=== PATIENT | female | born 1955 | race Caucasian/White ===

== ENCOUNTER 2020-02-28 14:11 | Outpatient (CLI) | payer OTHER, SELFPAY ==
--- NOTE | ~2020-02-28 | MM_ITS ---
EXAMINATION: MM screening jaqui BI w kaitlin HISTORY: Screening mammogram TECHNIQUE: Craniocaudal and mediolateral oblique 3-D tomosynthesis images were obtained and synthetic 2-D images were generated. CAD analysis was submitted and interpreted. COMPARISON: No prior mammogram is available for comparison at this institution. BREAST PARENCHYMAL COMPOSITION: The breasts are almost entirely fatty. FINDINGS: There is no evidence of suspicious mass, calcification, or architectural distortion to sugg est malignancy in either breast. There has been no suspicious interval change. IMPRESSION: 1. No mammographic evidence of malignancy. 2. Recommend routine screening mammography in one year. BI-RADS Category 1: Negative Reviewed, dictated and finalized at location A.
== END 2020-02-28 14:12 | disposition home or self-care (01) ==
DX: Z12.31 Encounter for screening mammogram for malignant neoplasm of breast (principal)
CPT/HCPCS: 77063; 77067

== ENCOUNTER 2024-07-22 15:35 | Emergency (ER) | payer OTHER, SELFPAY ==
--- NOTE | ~2024-07-22 | CT_ITS ---
EXAMINATION: CT brain wo con DATE: 07/22/2024 18:13 INDICATION: Headache. TECHNIQUE: Computed tomography (CT) of the head was performed without intravenous contrast. The mA wa s adjusted according to patient size. Iterative reconstruction technique was employed. The dose-lengt h product was 983.67 mGy-cm. COMPARISON: Head CT 05/13/2011 FINDINGS: Motion artifact is noted. There are old infarcts in the right frontal and parietal lobes. T here are scattered areas of low attenuation in the cerebral white matter. There is no intracranial he morrhage, acute infarction, or abnormal intracranial mass lesion. The ventricles are normal in size. The paranasal sinuses are clear. The orbits are normal. The mastoid air cells are normal. There is ce rumen in the external auditory canals. IMPRESSION: 1. 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 2. Moderate nonspecific cerebral white matter disease, which likely represents chronic small vessel i schemic disease. Reviewed, dictated and finalized at location A. COLLECTOR IMPRESSION: 1. 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 2. Moderate nonspecific cerebral white matter disease, which likely represents chronic small vessel ischemic disease.
--- NOTE | ~2024-07-22 | US_ITS ---
Duplex Sonography of the left extremity: Indication: DVT Findings: Sagittal and transverse B-mode images as well as color-flow imaging were performed on the l eft femoral and popliteal veins. B-mode examination was done without and with compression in the tra nsverse plane. There is good visualization of the common femoral, proximal profunda femoral, superfi cial femoral, greater saphenous, and popliteal veins. Normal flow was seen on color-flow imaging. No rmal compressibility was demonstrated. Impression: No evidence of deep vein thrombosis involving the left femoral, greater saphenous, superficial femora l, or popliteal veins. Reviewed, dictated and finalized at location M. CAP Impression: No evidence of deep vein thrombosis involving the left femoral, greater sapheno us, superficial femoral, or popliteal veins.
[2024-07-22 15:40] VITALS: BP 148/82; PULSE 78; RESP 17; TEMP 36.6; O2SAT 96
--- NOTE | 2024-07-22 17:12 | ED_ITS ---
HPI - General Adult General Chief complaint: Unspecified <ARTIS Villarreal Last Filed: 07/22/24 17:23> Stated complaint: body spasm <ARTIS Villarreal Last Filed: 07/22/24 17:23> Time Seen by Provider: 07/22/24 17:15 <ARTIS Villarreal Last Filed: 07/22/24 17:23> Focused HPI: Patient is a 69 y/o female who presents to the ED via EMS with report of tremor. Patient is a resident of [facility]. Per EMS report, patient has been c/o tremor for the past few hours. Patient states she has hx of tremor and there is no difference in her tremor today. States it usually will go away however. Per records, hx of tardive dyskinesia. Patient reports hx of seizures, on several medicines, on lacosamide, keppra, Aptiom, nayzilam per med rec. GENERAL: Chronically ill-appearing, well-nourished, and in no acute distress. HEAD: Normocephalic, atraumatic. ENT: Edentulous. CHEST: Clear to auscultation. ?No respiratory distress. HEART: Regular rate and rhythm.? NEURO: ?Alert and oriented x3. Intermittent yelling out. Pill rolling tremor of mouth. Tremor of upper extremities bilaterally and head/neck. Intermittent spasms of arms. No focal deficits. Able to move all extremities. Slight decrease in tremor with purposeful movement. Patient screened in triage and initial orders placed.? ?Additional care and disposition to be based upon?diagnostic testing and treatment. <ARTIS Villarreal Last Filed: 07/22/24 17:23> Source: patient, EMS and old records reviewed <ARTIS Villarreal Last Filed: 07/22/24 17:23> Mode of arrival: EMS <ARTIS Villarreal Last Filed: 07/22/24 17:23> Limitations: no limitations <ARTIS Villarreal Last Filed: 07/22/24 17:23> History of Present Illness HPI narrative: Agree with the above triage note. At the time of my evaluation the patient states she has improved shaking. She states earlier she was ?shaking all over?. She does have a history of seizures with states she normally loses consciousness for the seizures and this does not feel like a seizure. She states she has been compliant with her medications. Additionally she is reporting pain and redness to her left lower extremity. States 3 weeks ago she had an ultrasound of her LLE to r/o DVT but was never told the results. She denies chest pain or shortness of breath, cough or congestion, abdominal pain, N/V/D, dysuria or hematuria, fever. <ARTIS Mcginnis Last Filed: 07/23/24 02:55> Related Data Allergies/adverse reactions: Allergies Allergy/AdvReac Type Severity Reaction Status Date / Time No Known Allergies Allergy Verified 07/22/24 15:36 <ARTIS Villarreal Last Filed: 07/22/24 17:23> Review of Systems Review of Systems: All systems reviewed & are unremarkable except as noted in HPI and below <ARTIS Mcginnis Last Filed: 07/23/24 02:55> Exam Narrative: GENERAL: Well-appearing, well-nourished, and in no acute distress. HEAD: Normocephalic, atraumatic. EYES: PERRLA and EOMI. ENT: Nares clear, no rhinorrhea or epistaxis. Mucous membranes moist. NECK: Supple. CHEST: Clear to auscultation. No respiratory distress. HEART: Regular rate and rhythm. No murmur heard. Normal peripheral pulses. ABDOMEN: Soft, nontender, nondistended, normal active bowel sounds. EXTREMITIES: Normal range of motion. No edema. SKIN: Left lower extremity with several superficial healing wounds in surrounding erythema and warmth. No purulence, crepitus, induration or fluctuation. Left lower extremity mildly more edematous when compared to the right. Cap refill less than 2. Sensation intact. DP pulse 2 +. NEURO: No focal deficits. Alert and oriented x3. Cranial nerves 2-12 intact. Strength 5/5 BUE and BLE. Sensation intact throughout. No tremors or fasciculations <ARTIS Mcginnis Last Filed: 07/23/24 02:55> Course CRACKLING PRESS OPERATOR/PA Physician Supervision For this patient encounter, I reviewed the CRACKLING PRESS OPERATOR or PA documentation, treatment plan, and medical decision making and had [id number] time with this patient. I performed all aspects of the MDM as documented. <Evelyn Horvath MD - Last Filed: 07/23/24 06:34> Vital Signs Vital signs: Vital Signs Temperature 97.8 F 07/22/24 15:40 Pulse Rate 78 07/22/24 15:40 Respiratory Rate 17 07/22/24 15:40 Blood Pressure 148/82 H 07/22/24 15:40 Pulse Oximetry 96 07/22/24 15:40 Oxygen Delivery Room Air 07/22/24 15:40 Temperature 97.8 F 07/22/24 15:40 Pulse Rate 60 07/23/24 06:11 Respiratory Rate 19 07/23/24 06:11 Blood Pressure 110/58 L 07/23/24 06:11 Pulse Oximetry 94 07/23/24 06:11 Oxygen Delivery Room Air 07/22/24 15:40 <Jacklyn Trejo PA-C - Last Filed: 07/22/24 17:23> Vital Signs Temperature 97.8 F 07/22/24 15:40 Pulse Rate 78 07/22/24 15:40 Respiratory Rate 17 07/22/24 15:40 Blood Pressure 148/82 H 07/22/24 15:40 Pulse Oximetry 96 07/22/24 15:40 Oxygen Delivery Room Air 07/22/24 15:40 Temperature 97.8 F 07/22/24 15:40 Pulse Rate 60 07/23/24 06:11 Respiratory Rate 19 07/23/24 06:11 Blood Pressure 110/58 L 07/23/24 06:11 Pulse Oximetry 94 07/23/24 06:11 Oxygen Delivery Room Air 07/22/24 15:40 <Melina Leiva PA-C - Last Filed: 07/23/24 02:55> Vital Signs Temperature 97.8 F 07/22/24 15:40 Pulse Rate 78 07/22/24 15:40 Respiratory Rate 17 07/22/24 15:40 Blood Pressure 148/82 H 07/22/24 15:40 Pulse Oximetry 96 07/22/24 15:40 Oxygen Delivery Room Air 07/22/24 15:40 Temperature 97.8 F 07/22/24 15:40 Pulse Rate 60 07/23/24 06:11 Respiratory Rate 19 07/23/24 06:11 Blood Pressure 110/58 L 07/23/24 06:11 Pulse Oximetry 94 07/23/24 06:11 Oxygen Delivery Room Air 07/22/24 15:40 <Evelyn Horvath MD - Last Filed: 07/23/24 06:34> Medical Decision Making MDM Narrative Medical decision making narrative: MSE by CIRILO in triage. <Jacklyn Trejo PA-C - Last Filed: 07/22/24 17:23> MSE by CIRILO in triage. 69-year-old female presents to the ED via EMS from [facility] for increasing tremors. Patient has a history seizure disorder and tremors. She has been taking her medications as directed. Upon triage patient had diffuse fasciculations and tremors as noted in triage note. At the time of my evaluation her tremors have completely resolved. She is resting comfortably in exam bed in without focal neurologic deficits. She is reporting some pain in her left lower extremity which reveals focal area of cellulitis with healing scab. Her leg is mildly more edematous than her right side will obtain venous duplex. Workup shows no leukocytosis or anemia. Chemistries are largely unremarkable. UA without infection. CK normal at 60. Mag normal at 2.1. CT brain shows no acute findings. Left lower extremity duplex shows no evidence of VTE. Patient updated on workup. She is started on Keflex for cellulitis to the left lower extremity and advised to follow-up with her PCP. Strict ED return precautions discussed. She is agreeable to plan verbalized understanding. Discharged in stable condition. <Melina Leiva PA-C - Last Filed: 07/23/24 02:55> Vital Signs Vital Signs: Vital Signs Temperature 97.8 F 07/22/24 15:40 Pulse Rate 78 07/22/24 15:40 Respiratory Rate 17 07/22/24 15:40 Blood Pressure 148/82 H 07/22/24 15:40 Pulse Oximetry 96 07/22/24 15:40 Oxygen Delivery Room Air 07/22/24 15:40 Temperature 97.8 F 07/22/24 15:40 Pulse Rate 60 07/23/24 06:11 Respiratory Rate 19 07/23/24 06:11 Blood Pressure 110/58 L 07/23/24 06:11 Pulse Oximetry 94 07/23/24 06:11 Oxygen Delivery Room Air 07/22/24 15:40 <ARTIS Villarreal Last Filed: 07/22/24 17:23> Vital Signs Temperature 97.8 F 07/22/24 15:40 Pulse Rate 78 07/22/24 15:40 Respiratory Rate 17 07/22/24 15:40 Blood Pressure 148/82 H 07/22/24 15:40 Pulse Oximetry 96 07/22/24 15:40 Oxygen Delivery Room Air 07/22/24 15:40 Temperature 97.8 F 07/22/24 15:40 Pulse Rate 60 07/23/24 06:11 Respiratory Rate 19 07/23/24 06:11 Blood Pressure 110/58 L 07/23/24 06:11 Pulse Oximetry 94 07/23/24 06:11 Oxygen Delivery Room Air 07/22/24 15:40 <ARTIS Mcginnis Last Filed: 07/23/24 02:55> Vital Signs Temperature 97.8 F 07/22/24 15:40 Pulse Rate 78 07/22/24 15:40 Respiratory Rate 17 07/22/24 15:40 Blood Pressure 148/82 H 07/22/24 15:40 Pulse Oximetry 96 07/22/24 15:40 Oxygen Delivery Room Air 07/22/24 15:40 Temperature 97.8 F 07/22/24 15:40 Pulse Rate 60 07/23/24 06:11 Respiratory Rate 19 07/23/24 06:11 Blood Pressure 110/58 L 07/23/24 06:11 Pulse Oximetry 94 07/23/24 06:11 Oxygen Delivery Room Air 07/22/24 15:40 <Evelyn Horvath MD - Last Filed: 07/23/24 06:34> Lab Data Result diagrams: 07/22/24 17:31 07/22/24 17:31 <ARTIS Villarreal Last Filed: 07/22/24 17:23> Labs: Lab Results 07/22/24 07/22/2407/22/24 Range/Units 17:31 20:30 22:06 WBC 8.1 (4.5-10.0) K/mm3 RBC 5.06 (4.2-5.4) M/mm3 Hgb 12.6 (12.0-15.0) g/dL Hct 40.2 (37.0-47.0) % MCV 79.4 L (80-100) fl MCH 24.9 L (26-34) pg MCHC 31.3 L (32-36) g/dl RDW 19.9 H (11.5-14.5) % Plt Count 229 (150-375) k/mm3 MPV 8.7 (7.4-10.4) fl Immature Gran % (Auto) 0.4 (0-0.5) % Neut % (Auto) 81.5 H (45.5-73.1) % Lymph % (Auto) 9.4 L (18.3-44.2) % [place] % (Auto) 6.3 (2.6-8.5) % Eos % (Auto) 1.9 (0-4.4) % Baso % (Auto) 0.5 (0.2-1.2) % Lymph # (Auto) 0.76 L (0.9-3.2) K/mm3 [place] # (Auto) 0.5 (0.1-0.6) K/mm3 Eos # (Auto) 0.2 (0-0.3) K/mm3 Baso # (Auto) 0.0 (0.0-0.1) K/mm3 Abs Immat Gran (auto) 0.03 (0.00-0.031) K/mm3 Absolute Neuts (auto) 6.6 (1.3-6.7) K/mm3 Absolute Nucleated RBC 0.000 (0.0-0.012) K/mm3 Nucleated RBC % 0.0 (0.0-0.2) % PT 14.2 (11.1-14.7) Seconds INR 1.1 APTT 32.5 (22.3-36.8) Seconds Sodium 135 L (137-145) mmol/L Potassium 3.8 (3.4-5.0) mmol/L Chloride 98 (98-107) mmol/L Carbon Dioxide 23 (22-30) mmol/L Anion Gap 14 H (4-12) mmol/L BUN 15 (7-17) mg/dL Creatinine 0.80 (0.7-1.0) mg/dL Estim Creat Clear Calc 53 ml/min Estimated GFR > 60 (59 - ) Glucose 139 H (65-110) mg/dL Calcium 9.2 (8.4-10.2) mg/dL Magnesium 2.1 (1.6-2.3) mg/dL Total Bilirubin 0.3 (0.2-1.3) mg/dL AST 25 (14-36) U/L ALT 12 (6-35) U/L Alkaline Phosphatase 174 H (38-126) U/L Total Creatine Kinase 98 (30-135) U/L Total Protein 9.0 H (6.3-8.2) g/dL Albumin 4.7 (3.5-5.1) g/dL Urine Color Yellow (Yellow) Urine Appearance Clear (Clear) Urine pH 7.5 (5.0-9.0) Ur Specific [place] 1.008 (1.001-1.035) Urine Protein Negative (Negative) mg/dL Urine Glucose (UA) Negative (Negative) mg/dL Urine Ketones Negative (Negative) mg/dL Ur Blood (Man) Negative (Negative) Urine Nitrate Negative (Negative) Urine Bilirubin Negative (Negative) Urine Urobilinogen 0.2 (<2.0) mg/dL Leukocyte Esterase Rfl Negative (Negative) HERNANDEZ/UL <Jacklyn Trejo PA-C - Last Filed: 07/22/24 17:23> Lab Results 07/22/24 07/22/24 07/22/24 Range/Units 17:31 20:30 22:06 WBC 8.1 (4.5-10.0) K/mm3 RBC 5.06 (4.2-5.4) M/mm3 Hgb 12.6 (12.0-15.0) g/dL Hct 40.2 (37.0-47.0) % MCV 79.4 L (80-100) fl MCH 24.9 L (26-34) pg MCHC 31.3 L (32-36) g/dl RDW 19.9 H (11.5-14.5) % Plt Count 229 (150-375) k/mm3 MPV 8.7 (7.4-10.4) fl Immature Gran % (Auto) 0.4 (0-0.5) % Neut % (Auto) 81.5 H (45.5-73.1) % Lymph % (Auto) 9.4 L (18.3-44.2) % [place] % (Auto) 6.3 (2.6-8.5) % Eos % (Auto) 1.9 (0-4.4) % Baso % (Auto) 0.5 (0.2-1.2) % Lymph # (Auto) 0.76 L (0.9-3.2) K/mm3 [place] # (Auto) 0.5 (0.1-0.6) K/mm3 Eos # (Auto) 0.2 (0-0.3) K/mm3 Baso # (Auto) 0.0 (0.0-0.1) K/mm3 Abs Immat Gran (auto) 0.03 (0.00-0.031) K/mm3 Absolute Neuts (auto) 6.6 (1.3-6.7) K/mm3 Absolute Nucleated RBC 0.000 (0.0-0.012) K/mm3 Nucleated RBC % 0.0 (0.0-0.2) % PT 14.2 (11.1-14.7) Seconds INR 1.1 APTT 32.5 (22.3-36.8) Seconds Sodium 135 L (137-145) mmol/L Potassium 3.8 (3.4-5.0) mmol/L Chloride 98 (98-107) mmol/L Carbon Dioxide 23 (22-30) mmol/L Anion Gap 14 H (4-12) mmol/L BUN 15 (7-17) mg/dL Creatinine 0.80 (0.7-1.0) mg/dL Estim Creat Clear Calc 53 ml/min Estimated GFR > 60 (59 - ) Glucose 139 H (65-110) mg/dL Calcium 9.2 (8.4-10.2) mg/dL Magnesium 2.1 (1.6-2.3) mg/dL Total Bilirubin 0.3 (0.2-1.3) mg/dL AST 25 (14-36) U/L ALT 12 (6-35) U/L Alkaline Phosphatase 174 H (38-126) U/L Total Creatine Kinase 98 (30-135) U/L Total Protein 9.0 H (6.3-8.2) g/dL Albumin 4.7 (3.5-5.1) g/dL Urine Color Yellow (Yellow) Urine Appearance Clear (Clear) Urine pH 7.5 (5.0-9.0) Ur Specific [place] 1.008 (1.001-1.035) Urine Protein Negative (Negative) mg/dL Urine Glucose (UA) Negative (Negative) mg/dL Urine Ketones Negative (Negative) mg/dL Ur Blood (Man) Negative (Negative) Urine Nitrate Negative (Negative) Urine Bilirubin Negative (Negative) Urine Urobilinogen 0.2 (<2.0) mg/dL Leukocyte Esterase Rfl Negative (Negative) HERNANDEZ/UL <Melina Leiva PA-C - Last Filed: 07/23/24 02:55> Lab Results 07/22/24 07/22/24 07/22/24 Range/Units 17:31 20:30 22:06 WBC 8.1 (4.5-10.0) K/mm3 RBC 5.06 (4.2-5.4) M/mm3 Hgb 12.6 (12.0-15.0) g/dL Hct 40.2 (37.0-47.0) % MCV 79.4 L (80-100) fl MCH 24.9 L (26-34) pg MCHC 31.3 L (32-36) g/dl RDW 19.9 H (11.5-14.5) % Plt Count 229 (150-375) k/mm3 MPV 8.7 (7.4-10.4) fl Immature Gran % (Auto) 0.4 (0-0.5) % Neut % (Auto) 81.5 H (45.5-73.1) % Lymph % (Auto) 9.4 L (18.3-44.2) % [place] % (Auto) 6.3 (2.6-8.5) % Eos % (Auto) 1.9 (0-4.4) % Baso % (Auto) 0.5 (0.2-1.2) % Lymph # (Auto) 0.76 L (0.9-3.2) K/mm3 [place] # (Auto) 0.5 (0.1-0.6) K/mm3 Eos # (Auto) 0.2 (0-0.3) K/mm3 Baso # (Auto) 0.0 (0.0-0.1) K/mm3 Abs Immat Gran (auto) 0.03 (0.00-0.031) K/mm3 Absolute Neuts (auto) 6.6 (1.3-6.7) K/mm3 Absolute Nucleated RBC 0.000 (0.0-0.012) K/mm3 Nucleated RBC % 0.0 (0.0-0.2) % PT 14.2 (11.1-14.7) Seconds INR 1.1 APTT 32.5 (22.3-36.8) Seconds Sodium 135 L (137-145) mmol/L Potassium 3.8 (3.4-5.0) mmol/L Chloride 98 (98-107) mmol/L Carbon Dioxide 23 (22-30) mmol/L Anion Gap 14 H (4-12) mmol/L BUN 15 (7-17) mg/dL Creatinine 0.80 (0.7-1.0) mg/dL Estim Creat Clear Calc 53 ml/min Estimated GFR > 60 (59 - ) Glucose 139 H (65-110) mg/dL Calcium 9.2 (8.4-10.2) mg/dL Magnesium 2.1 (1.6-2.3) mg/dL Total Bilirubin 0.3 (0.2-1.3) mg/dL AST 25 (14-36) U/L ALT 12 (6-35) U/L Alkaline Phosphatase 174 H (38-126) U/L Total Creatine Kinase 98 (30-135) U/L Total Protein 9.0 H (6.3-8.2) g/dL Albumin 4.7 (3.5-5.1) g/dL Urine Color Yellow (Yellow) Urine Appearance Clear (Clear) Urine pH 7.5 (5.0-9.0) Ur Specific [place] 1.008 (1.001-1.035) Urine Protein Negative (Negative) mg/dL Urine Glucose (UA) Negative (Negative) mg/dL Urine Ketones Negative (Negative) mg/dL Ur Blood (Man) Negative (Negative) Urine Nitrate Negative (Negative) Urine Bilirubin Negative (Negative) Urine Urobilinogen 0.2 (<2.0) mg/dL Leukocyte Esterase Rfl Negative (Negative) HERNANDEZ/UL <Evelyn Horvath MD - Last Filed: 07/23/24 06:34> Discharge Plan Discharge Clinical Impression: Tremor Cellulitis Qualifiers: Site of cellulitis: extremity Site of cellulitis of extremity: lower extremity Laterality: left Qualified Code(s): L03.116 - Cellulitis of left lower limb <Jacklyn Trejo PA-C - Last Filed: 07/22/24 17:23> Patient Disposition: Home, Self-Care <ARTIS Villarreal Last Filed: 07/22/24 17:23> Condition: Stable <ARTIS Villarreal Last Filed: 07/22/24 17:23> Instructions: Antibiotic Form, Cellulitis (ED), Tremors (ED) <Jacklyn Trejo PA-C - Last Filed: 07/22/24 17:23> Additional Instructions: Take your antibiotics as directed. Follow up with her primary care provider. Return to the emergency department if you develop any worsening or changing symptoms. <Jacklyn Trejo PA-C - Last Filed: 07/22/24 17:23> Prescriptions: New cephalexin 500 mg capsule 500 mg PO Q6H Qty: 28 0RF <Jacklyn Trejo PA-C - Last Filed: 07/22/24 17:23> Follow-up/Referrals: PHYSICIAN,[employer] [Primary Care Provider] - <ARTIS Villarreal Last Filed: 07/22/24 17:23>
[2024-07-22 17:50] LABS: Basophils Percent Auto 0.5 % (0.2-1.2); Eosinophils Absolute Auto 0.2 K/mm3 (0-0.3); Eosinophils Percent Auto 1.9 % (0-4.4); Hematocrit 40.2 % (37.0-47.0); Hemoglobin 12.6 g/dL (12.0-15.0); Immature Granulocyte Absolute 0.03 K/mm3 (0.00-0.031); Immature Granulocyte Percent A 0.4 % (0-0.5); Lymphocytes Absolute Auto 0.76 K/mm3 (0.9-3.2); Lymphocytes Percent Auto 9.4 % (18.3-44.2); Mean Corpuscular HGB Conc 31.3 g/dl (32-36); Mean Corpuscular Hemoglobin 24.9 pg (26-34); Mean Corpuscular Volume 79.4 fl (80-100); Mean Platelet Volume 8.7 fl (7.4-10.4); Monocytes Absolute Auto 0.5 K/mm3 (0.1-0.6); Monocytes Percent Auto 6.3 % (2.6-8.5); Neutrophils Absolute Auto 6.6 K/mm3 (1.3-6.7); Neutrophils Percent Auto 81.5 % (45.5-73.1); Platelet Count Result 229 k/mm3 (150-375); Red Blood Count 5.06 M/mm3 (4.2-5.4); Red Cell Distribution Width 19.9 % (11.5-14.5); White Blood Count 8.1 K/mm3 (4.5-10.0)
[2024-07-22 18:03] LABS: Alanine Aminotransferase 12 U/L (6-35); Albumin Level 4.7 g/dL (3.5-5.1); Alkaline Phosphatase 174 U/L (38-126); Anion Gap 14 mmol/L (4-12); Aspartate Amino Transferase 25 U/L (14-36); Bilirubin,Total 0.3 mg/dL (0.2-1.3); Blood Urea Nitrogen 15 mg/dL (7-17); Calcium 9.2 mg/dL (8.4-10.2); Carbon Dioxide 23 mmol/L (22-30); Chloride 98 mmol/L (98-107); Creatine Kinase 98 U/L (30-135); Estimated CRCL calculation 53 ml/min; Estimated Glomerular Filt Rate > 60; Glucose 139 mg/dL (65-110); Magnesium 2.1 mg/dL (1.6-2.3); Potassium 3.8 mmol/L (3.4-5.0); Sodium 135 mmol/L (137-145)
--- NOTE | 2024-07-22 18:32 | PC.NURSE ---
Pt removed IV, tip intact
[2024-07-22 20:29] VITALS: BP 122/72; PULSE 78; RESP 18; O2SAT 94
[2024-07-22 21:02] LABS: Add Urine Microscopic? NO; Appearance Urine Clear (Clear); Bilirubin Urine Negative (Negative); Blood Urine Negative (Negative); Color Urine Yellow (Yellow); Glucose Urine UA Negative (Negative); Ketones Urine Negative (Negative); Leukocyte Esterase Ur Negative LEU/UL (Negative); Nitrate Urine Negative (Negative); Protein Urine Negative (Negative); Specific Grav Ur 1.008 (1.001-1.035); Urobilinogen Urine 0.2 mg/dL (<2.0); pH Urine 7.5 (5.0-9.0)
[2024-07-22 21:55] VITALS: BP 108/57; PULSE 81; RESP 17; O2SAT 96
[2024-07-22 22:30] LABS: INR 1.1; Prothrombin Time 14.2 Seconds (11.1-14.7)
[2024-07-22 22:31] LABS: Partial Thromboplastin Time 32.5 Seconds (22.3-36.8)
[2024-07-22] MEDS: LORazepam (*CRX) 0.5 MG TABLET PO (23:05)
[2024-07-22] MEDS: ACETAMINOPHEN 325 MG TABLET 650 MG PO (23:05)
[2024-07-22] MEDS: levETIRAcetam Tablet 250 MG, levETIRAcetam Tablet 500 MG 750 MG PO (23:10)
[2024-07-23] MEDS: CEPHALEXIN 500 MG CAPSULE PO (03:11)
[2024-07-23 03:13] VITALS: BP 100/80; PULSE 67; RESP 16; O2SAT 97
--- NOTE | 2024-07-23 04:51 | PC.NURSE ---
Patient does not qualify for ambulance. Spoke with Shwetha from [facility] in regards to transportation. She stated she would have her set up with the transportation vehicle for later in the morning and will call back with an ETA.
[2024-07-23 06:11] VITALS: BP 110/58; PULSE 60; RESP 19; O2SAT 94
[2024-07-23 07:27] VITALS: BP 112/63; PULSE 65; RESP 18; TEMP 36.7; O2SAT 96
== END 2024-07-23 07:29 ==
PROVIDERS: Physician Assistant; Emergency Provider Emergency Medicine
DX: R25.1 Tremor, unspecified (principal); L03.116 Cellulitis of left lower limb; G40.909 Epilepsy, unspecified, not intractable, without status epilepticus; Z79.899 Other long term (current) drug therapy
CPT/HCPCS: 36415; 70450; 80053; 81003; 82550; 83735; 85025; 85610; 85730; 93971; 99284; A9270

== ENCOUNTER 2024-11-03 09:01 | Emergency (ER) | payer OTHER, SELFPAY ==
[2024-11-03] VITALS (7 sets, daily range): BP systolic 107–135; BP diastolic 58–77; PULSE 56–67; RESP 16–23; TEMP 36.5–36.7; O2SAT 94–100
[2024-11-03 09:53] LABS: Basophils Percent Auto 0.4 % (0.2-1.2); Eosinophils Absolute Auto 0.3 K/mm3 (0-0.3); Eosinophils Percent Auto 6.6 % (0-4.4); Hematocrit 36.9 % (37.0-47.0); Hemoglobin 11.5 g/dL (12.0-15.0); Immature Granulocyte Absolute 0.01 K/mm3 (0.00-0.031); Immature Granulocyte Percent A 0.2 % (0-0.5); Lymphocytes Absolute Auto 0.78 K/mm3 (0.9-3.2); Lymphocytes Percent Auto 17.2 % (18.3-44.2); Mean Corpuscular HGB Conc 31.2 g/dl (32-36); Mean Corpuscular Hemoglobin 25.8 pg (26-34); Mean Corpuscular Volume 82.7 fl (80-100); Mean Platelet Volume 8.7 fl (7.4-10.4); Monocytes Absolute Auto 0.5 K/mm3 (0.1-0.6); Monocytes Percent Auto 11.3 % (2.6-8.5); Neutrophils Absolute Auto 2.9 K/mm3 (1.3-6.7); Neutrophils Percent Auto 64.3 % (45.5-73.1); Platelet Count Result 203 k/mm3 (150-375); Red Blood Count 4.46 M/mm3 (4.2-5.4); Red Cell Distribution Width 18.6 % (11.5-14.5); White Blood Count 4.5 K/mm3 (4.5-10.0)
[2024-11-03 09:55] LABS: Add Urine Microscopic? NO; Appearance Urine Clear (Clear); Bilirubin Urine Negative (Negative); Blood Urine Negative (Negative); Color Urine Yellow (Yellow); Glucose Urine UA Negative (Negative); Ketones Urine Negative (Negative); Leukocyte Esterase Ur Negative LEU/UL (Negative); Nitrate Urine Negative (Negative); Protein Urine Negative (Negative); Specific Grav Ur 1.008 (1.001-1.035); Urobilinogen Urine 0.2 mg/dL (<2.0); pH Urine 6.5 (5.0-9.0)
[2024-11-03 10:05] LABS: Alanine Aminotransferase 18 U/L (6-35); Alkaline Phosphatase 136 U/L (38-126); Anion Gap 10 mmol/L (4-12); Aspartate Amino Transferase 24 U/L (14-36); Bilirubin,Total 0.2 mg/dL (0.2-1.3); Blood Urea Nitrogen 14 mg/dL (7-17); Calcium 8.4 mg/dL (8.4-10.2); Carbon Dioxide 29 mmol/L (22-30); Chloride 99 mmol/L (98-107); Estimated CRCL calculation 67 ml/min; Estimated Glomerular Filt Rate > 60; Glucose 130 mg/dL (65-110); Potassium 3.4 mmol/L (3.4-5.0); Sodium 138 mmol/L (137-145)
--- NOTE | 2024-11-03 12:12 | ED.FALL ---
HPI - Fall General Chief Complaint: Fall Stated Complaint: fall from wheelchair Time Seen by Provider: 11/03/24 09:02 History of Present Illness HPI Narrative: Patient is a 69-year-old female who presents ER after falling over wheelchair. Reports she did not for break on which caused her to fall. She struck her forehead on the ground. No LOC. No blood thinners. Reports she is very anxious. Related Data Allergies Allergy/AdvReac Type Severity Reaction Status Date / Time No Known Allergies Allergy Verified 07/22/24 15:36 Review of Systems Review of Systems: All systems reviewed & are unremarkable except as noted in HPI and below Constitutional: Constitutional: Reports no additional constitutional complaints Cardiovascular: Cardiovascular: Reports no additional cardiovascular complaints Respiratory: Respiratory: Reports no additional respiratory complaints Gastrointestinal: Gastrointestinal: Reports no additional gastrointestinal complaints Neurologic: Reports system reviewed and no additional complaints, except as documented PMFSH Past Medical History Medical History (Updated 11/03/24 @ 12:54 by Laci Lomeli MD) Hypertension Anxiety Spinal stenosis Epilepsy Exam Narrative: GENERAL: Well-appearing, well-nourished, and in no acute distress. HEAD: Normocephalic, mild bruising and swelling left forehead. ENT: Mucous membranes moist. CHEST: Clear to auscultation. No respiratory distress. HEART: Regular rate and rhythm. Normal peripheral pulses. ABDOMEN: Soft, nontender, nondistended. EXTREMITIES: Normal range of motion. No edema. SKIN: Warm, dry, no rash. NEURO: Alert and oriented x3. PSYCH: Normal mood and affect. Course Course Emergency Course: Patient resting comfortably. Informed of results. Appropriate for discharge home. Vital Signs Vital signs: Vital Signs Temperature 97.8 F 11/03/24 09:02 Pulse Rate 67 11/03/24 09:02 Respiratory Rate 20 11/03/24 09:02 Blood Pressure 123/62 11/03/24 09:02 Pulse Oximetry 95 11/03/24 09:02 Oxygen Delivery Room Air 11/03/24 09:02 Temperature 97.7 F 11/03/24 09:08 Pulse Rate 61 11/03/24 09:31 Respiratory Rate 18 11/03/24 09:31 Blood Pressure 123/67 11/03/24 09:31 Pulse Oximetry 95 11/03/24 09:31 Oxygen Delivery Room Air 11/03/24 09:02 MDM - Fall Lab Data 11/03/24 09:43 11/03/24 09:43 Labs: Lab Results 11/03/24 Range/Units 09:43 WBC 4.5 (4.5-10.0) K/mm3 RBC 4.46 (4.2-5.4) M/mm3 Hgb 11.5 L (12.0-15.0) g/dL Hct 36.9 L (37.0-47.0) % MCV 82.7 (80-100) fl MCH 25.8 L (26-34) pg MCHC 31.2 L (32-36) g/dl RDW 18.6 H (11.5-14.5) % Plt Count 203 (150-375) k/mm3 MPV 8.7 (7.4-10.4) fl Immature Gran % (Auto) 0.2 (0-0.5) % Neut % (Auto) 64.3 (45.5-73.1) % Lymph % (Auto) 17.2 L (18.3-44.2) % [place] % (Auto) 11.3 H (2.6-8.5) % Eos % (Auto) 6.6 H (0-4.4) % Baso % (Auto) 0.4 (0.2-1.2) % Lymph # (Auto) 0.78 L (0.9-3.2) K/mm3 [place] # (Auto) 0.5 (0.1-0.6) K/mm3 Eos # (Auto) 0.3 (0-0.3) K/mm3 Baso # (Auto) 0.0 (0.0-0.1) K/mm3 Abs Immat Gran (auto) 0.01 (0.00-0.031) K/mm3 Absolute Neuts (auto) 2.9 (1.3-6.7) K/mm3 Absolute Nucleated RBC 0.000 (0.0-0.012) K/mm3 Nucleated RBC % 0.0 (0.0-0.2) % Sodium 138 (137-145) mmol/L Potassium 3.4 (3.4-5.0) mmol/L Chloride 99 (98-107) mmol/L Carbon Dioxide 29 (22-30) mmol/L Anion Gap 10 (4-12) mmol/L BUN 14 (7-17) mg/dL Creatinine 0.73 (0.7-1.0) mg/dL Estim Creat Clear Calc 67 ml/min Estimated GFR > 60 (59 - ) Glucose 130 H (65-110) mg/dL Calcium 8.4 (8.4-10.2) mg/dL Total Bilirubin 0.2 (0.2-1.3) mg/dL AST 24 (14-36) U/L ALT 18 (6-35) U/L Alkaline Phosphatase 136 H (38-126) U/L Total Protein 8.0 (6.3-8.2) g/dL Albumin 4.0 (3.5-5.1) g/dL Urine Color Yellow (Yellow) Urine Appearance Clear (Clear) Urine pH 6.5 (5.0-9.0) Ur Specific [place] 1.008 (1.001-1.035) Urine Protein Negative (Negative) mg/dL Urine Glucose (UA) Negative (Negative) mg/dL Urine Ketones Negative (Negative) mg/dL Ur Blood (Man) Negative (Negative) Urine Nitrate Negative (Negative) Urine Bilirubin Negative (Negative) Urine Urobilinogen 0.2 (<2.0) mg/dL Leukocyte Esterase Rfl Negative (Negative) HERNANDEZ/UL Imaging Data Radiologist's impression: ITS Impressions Head CT 11/03/24 10:12 Impression: No intracranial hemorrhage, mass, or acute infarct. Stable chronic infarcts, as above. Atrophy and chronic white matter changes, as above. Discharge Plan Discharge Clinical Impression: Forehead contusion Patient Disposition: Home, Self-Care Condition: Stable Instructions: Contusion in Adults (ED) Additional Instructions: Your fall from her wheelchair resulted in a contusion to your forehead. There is no additional injury or infection noted. Your stable to go back to your facility. Patient Language: Citizen Of [place] Prescriptions: No Action cephalexin 500 mg capsule 500 mg PO Q6H Qty: 28 0RF Follow-up/Referrals: Chele,MD Kai [Primary Care Provider] - 1 Week
--- NOTE | 2024-11-03 12:52 | PC.NURSE ---
RN spoke with pt concerning transport back to [place]. Pt states emergency contacts live too far & the other is in a home Arranging ambulance back to [place], RN spoke with Mariam GOTTLIEB at [facility] states [place] transport doesn't work on weekends.
== END 2024-11-03 13:00 ==
PROVIDERS: Emergency Provider Emergency Medicine; PCP Internal Medicine
DX: S00.83XA Contusion of other part of head, initial encounter (principal); I10 Essential (primary) hypertension; G40.909 Epilepsy, unspecified, not intractable, without status epilepticus; R94.31 Abnormal electrocardiogram [ECG] [EKG]; W05.0XXA Fall from non-moving wheelchair, initial encounter
CPT/HCPCS: 36415; 70450; 80053; 81003; 85025; 93005; 99284

== ENCOUNTER 2024-11-16 14:47 | Emergency (ER) | payer OTHER, SELFPAY ==
[2024-11-16 14:53] VITALS: BP 143/77; PULSE 83; RESP 19; TEMP 36.5; O2SAT 97
--- OUTSIDE RECORDS SUMMARY | 2024-11-16 15:13 | XMS_ITS | Data Portability ---
Author Organization SHRUTI LANAChantel Address [address] [place] [address] Assessment No assessment recorded. Plan of Treatment Reminders Order Date Submit Date Provider Last Modified By Organization Details Last Modified Time Details Appointments None recorded. Lab rapid strep group A, throat 2015 016 [facility] In-Office Order, Internal Use Only DO Not Attach Compendium DO Not Attach Compendium, Do Not Delete/merge, [id number] 6 15:37:22 CMP, serum or plasma 2014 015 [email or web address] [facility], [address] [place] [address], [address], [place], [address], 5 11:52:33 lipid panel, serum 2014 015 [email or web address] [facility], [address] [place] [address], [address], [place], [address], 5 11:52:33 vitamin B12 + folate, serum or blood 2014 015 CHRISTOPHER [facility], [address] [place] [address], [address], [place], [address], 5 05:04:16 thyroid panel, serum 2014 015 CHRISTOPHER [facility], [address] [place] [address], [address], [place], [address], 5 05:04:18 vitamin D, 1,25-dihyd souleymane, serum 2014 015 CHRISTOPHER [facility], [address] [facility], [address], [place], [address], 5 05:04:14 Referral orthopedic referral - Please call patient to schedule [email or web address] [facility] Dept Of Orthopedics, [address] [facility], [place], [address], 7 08:19:02 ophthalmol ogist referral 2014 015 [email or web address] [facility], [address] , [place], [address], 5 16:15:42 gastroente rologist referral - Please schedule appointmen t and contact patient. 2014 015 [email or web address] Not available 5 11:04:50 colonoscop y referral 2014 015 Not available 5 14:36:18 neurologis t referral 2014 015 [email or web address] Not available 5 14:36:[address] referral 2014 015 [email or web address] Not available 5 14:36:18 Procedures None recorded. Surgeries None recorded. Imaging x-ray, knee 2015 016 [email or web address] Not available 6 12:27:10 EEG 2014 015 [email or web address] Not available 5 14:36:19 MAMMO, screening, digital, unilateral 2014 015 Not available 5 14:36:19 bone density, hip and spine 2014 015 [email or web address] Not available 5 14:36:19 Medication Orders phenytoin sodium extended 100 mg capsule 2015 016 [id number], [address] [place], [id number], 6 12:36:22 tobramycin 0.3 % eye drops 2015 016 [facility] [employer] [facility] #47679, [address] [place] [address], [id number], 6 15:37:29 Zithromax Z-Christopher 250 mg tablet 2015 016 [facility] [employer] [facility] #47430, [address] [place] [address], [id number], 6 15:37:30 Dilantin Extended 100 mg capsule 2014 015 [facility] [employer] [facility] #78579, [address] [place] [address], [id number], 5 16:47:52 Dilantin Extended 100 mg capsule 2014 015 [facility] [employer] [facility] #62104, [address] [place] [address], [id number], 5 13:19:08 Patient TargetsNo targets recorded. Patient Instructions Encounter Date Encounter Id Patient Instructions Last Modified By Organization Details Last Modified Time 01/02/2015 [id number] chronic obstructive pulmonary disease (COPD): care instructions [email or web address] Not available 01/02/2015 13:19:08 learning about copd and how to prevent lung infections [facility] Not available 01/02/2015 13:19:08 06/24/2015 [id number] chronic obstructive pulmonary disease (COPD): care instructions [email or web address] Not available 06/25/2015 13:12:08 learning about copd and how to prevent lung infections [email or web address] Not available 06/25/2015 13:12:08 F/U VISIT IN 3-4 MONTHS. [facility] Not available 06/24/2015 16:47:36 10/02/2015 [id number] pinkeye: care instructions strice Not available 10/02/2015 15:37:42 sore throat: car e instructions strice Not available 10/02/2015 15:37:42 12/24/2015 [id number] knee arthritis: care instructions strice Not available 12/24/2015 13:07:00 chronic obstructive pulmonary disease (COPD): care instructions strice Not available 12/24/2015 13:07:00 learning about copd and how to prevent lung infections strice Not available 12/24/2015 13:07:00 Reason for Referral Please schedule appointment and contact patient. Referring Physician: Zach Dick Internal Medicine, Encounter Date: 01/02/2015 Colonoscopy Referral for Scr eening for malignant neoplasm of colon Referring Physician: Zach Dick Internal Medicine, Encounter Date: 01/02/2015 Balloon Dipper Referral for Ad ult health examination Referring Physician: Zach Dick Internal Medicine, Encounter Date: 01/02/2015 Neurologist Referral for Sei zure Referring Physician: Zach Dick Internal Medicine, Encounter Date: 01/02/2015 Vial Gauger Referral for Disorder of vision Referring Physician: Zach Dick Internal Medicine, Encounter Date: 06/24/2015 Orthopedic Referral for Oste oarthritis of knee Please call patient to schedule Referring Physician: Zach Dick Internal Medicine, Encounter Date: 12/24/2015 Results Created Date Observation Date Name Description Value Unit Range Abnormal Flag Note LastModifiedBy Organization Detail LastModifiedTime 10/02/19 16 10/02/2015 rapid strep group A, throa t Strep negati ve Not Available In-Office Order Internal Use Only DO Not Attach Compendium DO Not Attach Compendium, Do Not Delete/merge, [id number] 10/02/2015 15:36:37 04/27/20 15 04/27/2015 imagi ng/di agnos tic resul t No observ ation record ed. [facility] (Imaging) [address] [place], [address], 06/24/2015 16:44:59 04/27/20 15 04/27/2015 imagi ng/di agnos tic resul t No observ ation record ed. [facility] (Imaging) [address] [place], [address], 06/24/2015 16:44:59 11/17/19 16 11/16/2015 imagi ng/di agnos tic resul t No observ ation record ed. [facility] (Imaging) [address] [place], [address], 12/24/2015 12:26:34 05/06/20 16 05/06/2016 CT, head No observ ation record ed. [facility] [address] [place], [address], 05/06/2016 14:29:19 05/06/20 16 05/06/2016 CT, cervi josefina spine , w/o contr ast No observ ation record ed. [facility] (Imaging) [address] [place], [address], 05/06/2016 14:28:52 05/06/20 16 05/06/2016 x-ray , chest No observ ation record ed. [facility] (Imaging) [address] [place], [address], 05/06/2016 14:28:36 10/18/19 19 10/18/2018 XR, chest No observ ation record ed. [facility] ([facility]) [address] [place], [address], 10/18/2018 14:12:05 10/18/19 19 10/18/2018 CT, head, w/o contr ast No observ ation record ed. [facility] Not Available 2018 14:11:46 Result Notes None recorded. Problems Name Problem SNOMED Code Status Onset Date Resolution Date Notes Provider Name and Address Organization Details Recorded Time Seizure 04487286 Active Zach Dick MD Attn: Lisa g,[address] [facility], [place], [address], [place] [facility] 6 12:36:22 Chronic obstructive pulmonary disease 21320059 Active Zach Dick MD Attn: Lisa kruger,[address] [facility], [place], [address], [place] [facility] 6 12:36:22 Disorder of vision 55823303 Active Zach Dick MD Attn: Lisa kruger,[address] [facility], [place], [address], [place] [facility] 5 16:47:52 Acute conjunctivitis 75124049 Active Zach Dick MD Attn: Lisa kruger,[address] [facility], [place], [address], [place] [facility] 6 15:37:20 Acute pharyngitis 937774301 Active Zach Dick MD Attn: Lisa kruger,[address] [facility], [place], [address], [place] [facility] 6 15:37:20 Osteoarthritis of knee 888084270 Active Ana Calloway RN null, [place] [facility] 6 10:52:19 Problem Notes None recorded. Procedures Surgical History None recorded. Imaging Results Imaging Date Name Status LastModified by [facility] Details LastModified Time 04/27/2015 imaging/diagn ostic result completed [facility] (Im[facility]) [address] [place], [address], 06/24/2015 16:44:59 04/27/2015 imaging/diagn ostic result completed [facility] ([facility]) [address] [place], [address], 06/24/2015 16:44:59 11/16/2015 imaging/diagn ostic result completed [facility] (Im[facility]) [address] [place], [address], 12/24/2015 12:26:34 05/06/2016 CT, head completed [facility] [address] [place], [address], 05/06/2016 14:29:19 05/06/2016 CT, cervical spine, w/o contrast completed [facility] (Imaging) [address] [place], [address], 05/06/2016 14:28:52 05/06/2016 x-ray, chest completed [facility] (Imaging) [address] [place], [address], 05/06/2016 14:28:36 10/18/2018 XR, chest completed [facility] (Imaging) [address] [place], [address], 10/18/2018 14:12:05 10/18/2018 CT, head, w/o contrast completed [facility] Information not available 10/18/2018 14:11:46 Procedure Notes None recorded. Medical Equipment None Reported. Allergies No known drug allergies Medications Name Sig Start Date Stop Date Status Note LastModified by Organization Details LastModified Time phenytoin ex cap 100mgphenyto in sodium extended active Not Available Not Available Not Available tobramycin sulfate 0.3 % soln active Not Available Not Available Not Available phenytoin sodium extended 100 mg caps active Not Available Not Available Not Available azithromycin 250 mg tablet TAKE 2 TABLETS (500 MG) BY ORAL ROUTE ONCE DAILY FOR 1 DAY THEN 1 TABLET (250 MG) BY ORAL ROUTE ONCE DAILY FOR 4 DAYS active Not Available Not Available No t Available hydrocodone 5 mg-acetamino phen 325 mg tablet active Not Available Not Available Not Available phenytoin sodium extended 100 mg capsule TAKE ONE CAPSULE BY MOUTH THREE TIMES DAILY active Not Available Not Available Not Available triamcinolon e acetonide 0.1 % topical cream active Not Available Not Available Not Available tobramycin 0.3 % eye drops INSTILL 1 DROP INTO AFFECTED EYE(S) BY OPHTHALMIC ROUTE EVERY 4 HOURS active Not Available Not Available No t Available Dilantin 30 mg capsule Take by oral route. active Not Available Not Available Not Available Vitals Date Recorded Oxygen saturation Oxygen saturation in Arterial blood by Pulse oximetry Body weight Heart rate Body mass index (BMI) Body height Body temperature Systolic blood pressure Diastolic blood pressure Provider Name and Address Organization Details Last Updated DateTime 5 95 % 95 % 33185.4 03878 g 94 /min 30.4 kg/m2 155.575 cm 98.2 [degF] 118 mm[Hg] 86 mm[Hg] Emmanuel Gabriel MA [facility] 5 12:38:26 Date Recorded Body weight Oxygen saturation Oxygen saturation in Arterial blood by Pulse oximetry Body height Body temperature Heart rate Body mass index (BMI) Systolic blood pressure Diastolic blood pressure Provider Name and Address Organization Details Last Updated DateTime 5 12898.0 75454 g 97 % 97 % 155.575 cm 98.3 [degF] 77 /min 29.9 kg/m2 120 mm[Hg] 80 mm[Hg] Emmanuel Gabriel MA [facility] 5 16:27:46 Date Recorded Body temperature Body mass index (BMI) Body height Oxygen saturation Oxygen saturation in Arterial blood by Pulse oximetry Heart rate Body weight Systolic blood pressure Diastolic blood pressure Provider Name and Address Organization Details Last Updated DateTime 6 99.4 [degF] 29.3 kg/m2 155.575 cm 97 % 97 % 103 /min 58332.8 96994 g 120 mm[Hg] 80 mm[Hg] Emmanuel Gabriel MA [facility] 6 15:17:22 Date Recorded Body weight Oxygen saturation Oxygen saturation in Arterial blood by Pulse oximetry Heart rate Body mass index (BMI) Body height Body temperature Systolic blood pressure Diastolic blood pressure Provider Name and Address Organization Details Last Updated DateTime 6 22090.8 04886 g 96 % 96 % 75 /min 29.3 kg/m2 155.575 cm 98.3 [degF] 108 mm[Hg] 82 mm[Hg] Emmanuel Gabriel MA [facility] 6 12:17:39 Social History Question Answer Notes LastModified by Organizat ion Details LastModified Time Tobacco Smoking Status Former Smoker cigarettes LIAT Fabian, [facility] 01/02/2015 12:38:26 How Many Years Have You Smoked Tobacco? 27 [email or web address] Information not available 01/02/2015 Sex: Unknown Functional Status None recorded. Mental Status None recorded. Family History Nothing Reported. Medical History No medical history recorded. Gynecological HistoryNo gynecological history recorded. Obstetrics History GPAL:G 0 P 0 0 0 0 Past Encounters Encounter ID Performer Location Encounter Start Date Encounter Closed Date Diagnosis/Indication Diagnosis SNOMED-CT Code Diagnosis ICD10 Code Diagnosis Note [id number] [facility] (Adult Med) [address] [place] [address] 01/02/2015 12:22:59 01/02/2015 14:36:18 Seizure 05203971 Chronic ob structive pulmonary disease 01801604 Ex-smoker 1448866 Screening for malignant neoplasm of colon 624640066 Adult [facility] th examination 839569394 [id number] Stacy Banglroy [facility] (Adult Med) [address] [place] [address] 04/27/2015 11:55:16 04/27/2015 16:33:40 [id number] Zach Dick MD [facility] (Adult Med) [address] [place] [address] 06/24/2015 16:20:42 06/24/2015 17:15:59 Chronic obstructive pulmonary disease 25934345 J44.9 Seizure 44492051 R56.9 Disorder of vision 48511 002 H53.9 [id number] Caty Franklin is [facility] (Adult Med) [address] [place] [address] 10/02/2015 15:01:16 10/02/2015 15:43:10 Acute conjunctivitis 22924330 H10.33 Acute pharyngitis 382711 003 J02.9 [id number] [facility] [address] [place] [address] 12/24/2015 12:01:44 12/24/2015 12:35:19 Seizure 33854131 R56.9 Chronic ob structive pulmonary disease 59938320 J44.9 Ex-smoker 5882705 Z87.89 1 Osteoarthr itis of knee 688537508 M17.9 Health Concerns Section Related Observation LastModified by Organization Detai ls LastModified Time None Recorded Concern Status LastModified by Organization Details LastModified Time None Recorded Advance Directives Directive None Recorded Payers Encounter Date Sequence Insurance Name Policy Number Policy Chiang Covered Member ID Chiang Member ID Guarantor Name 01/02/2015 1 [facility] (MEDICAID HMO) Tejal Short [id number] Tejal Short 04/27/2015 1 [employer] [facility] (MEDICAID HMO) Tejal Short [id number] Tejal Short 06/24/2015 1 [facility] (MEDICAID HMO) Teajl Short [id number] Tejal Short 10/02/2015 1 [facility] (MEDICAID HMO) Tejal Short [id number] Tejal Short 12/24/2015 1 [facility] (MEDICAID HMO) Tejal Short [id number] Tejal Short Notes Date Note Type Note Provider Name and Address Organization Details Recorded Time 06/24/2015 text/html REFILLS OF MEDICATIONS., NO NECK PAIN, NO DIFFICULTY OF BREATHING. SHE GOT THE COLONOSCOPY EX, SHE WILL RE-SCHEDULE., SHE DOSE NOT WANT MAMMOGRAM. SHE HAS HAD READING PROBLEM, WILL REFERE TO EYE DOCTOR. Zach Dick MD Attn: [address] [place], [address], [facility] 06/24/2015 16:48:11 10/02/2015 text/html [place] [facility] throat. Zach Dick MD Attn: [address] [place], [address], [facility] 10/02/2015 15:37:23 OBGyn Episode No OBEpisode recorded.
--- OUTSIDE RECORDS SUMMARY | 2024-11-16 15:13 | XMS_ITS | CONTINUITY OF CARE DOCUMENT ---
Author Name anoop davalos Address Unknown Organization [facility] Address [address] [facility] [address] [place] [address] Phone [phone] Care Team Providers Care Territory Sales Manager Medical Name Role Phone Shanon Lozano MD Unavailable Shanon Lozano MD Unavailable [phone] INSURANCE PROVIDERS Payer name Policy type / Coverage type [place] [employer] MED[employer] Medicaid [id number]
--- OUTSIDE RECORDS SUMMARY | 2024-11-16 15:13 | XMS_ITS | Referral Summary ---
Author Organization [facility] Address [address] [place] [address] Care Team Providers Care Phlebotomy Technician Name Role Phone Kai Elaine MD Primary Care Provider [phone] Encounters Date Type Department Care Team Description 10/03/2024 1:20 PM LAUNCH CHECK OUT Office Visit [facility]) - [facility] ENT [address] [facility] [address] [place] [address] Allyn Dover NP Bilateral impacted cerumen (Primary Dx); Sensation of plugged ear on left side from Last 3 Months Allergies No known active allergies Medications propranoloL (INDERAL) 40 mg tablet 4 Active furosemide (LASIX) 20 mg tablet 4 Active Aptiom 800 mg tablet 4 Active clopidogreL (PLAVIX) 75 mg tablet 4 Active potassium chloride ER 20 mEq CR tablet 4 Active carbamide peroxide (DEBROX) 6.5 % otic solutionIndicat ions:Impacted Cerumen Administer 5 drops into the left ear 2 (two) times a day For 2 weeks 15 mL 1 5 Active Active Problems Problem Noted Date Diagnosed Date 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 Epilepsy 12/18/2012 Social History Tobacco Use Types Packs/Day Years Used Date Smoking Tobacco: Never Tobacco Cessation:Counseling Given: Not Answered Comments Unknown Sex and Gender Information Value Date Recorded Sex Assigned at Not on file Legal Sex Female 9:28 AM LAUNCH CHECK OUT Gender Identity Not on file Sexual Orientation Not on file Last Filed Vital Signs Vital Sign Reading Time Taken Comments Blood Pressure 125/85 10/03/2024 1:16 PM LAUNCH CHECK OUT Pulse 98 10/03/2024 1:16 PM LAUNCH CHECK OUT Temperature 36.4 C (97.6 F) 09/20/2017 11:41 PM LAUNCH CHECK OUT Respiratory Rate - - Oxygen Saturation 96% 09/20/2017 11:41 PM LAUNCH CHECK OUT Inhaled Oxygen Concentration - - Weight 90.7 kg (200 lb) 10/03/2024 1:16 PM LAUNCH CHECK OUT Height 160 cm (5' 3 ) 10/03/2024 1:16 PM LAUNCH CHECK OUT Body Mass Index 35.43 10/03/2024 1:16 PM LAUNCH CHECK OUT Plan of Treatment Not on file Insurance Care Teams Phlebotomy Technician Relationship Specialty Start Date End Date Kai Elaine MD [address] [place] [address] PCP - General Internal Medicine 12/11/23
--- OUTSIDE RECORDS SUMMARY | 2024-11-16 15:13 | XMS_ITS | Clinical Summary ---
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 Medical Office Building [address] [place] [address] Allyn Dover NP Bilateral impacted cerumen (Primary Dx); Sensation of plugged ear on left side from Last 3 Months Medical History Medical History Date Comments Seizures (HCC) Social History Tobacco Use Types Packs/Day Years Used Date Smoking Tobacco: Never Tobacco Cessation:Counseling Given: Not Answered Comments Unknown Sex and Gender Information Value Date Recorded Sex Assigned at Not on file Legal Sex Female 9:28 AM SALES ASSISTANT ENTERTAINMENT AND MEDIA Gender Identity Not on file Sexual Orientation Not on file Obstetrics History Last Filed Vital Signs Vital Sign Reading Time Taken Comments Blood Pressure 125/85 10/03/2024 1:16 PM SALES ASSISTANT ENTERTAINMENT AND MEDIA Pulse 98 10/03/2024 1:16 PM SALES ASSISTANT ENTERTAINMENT AND MEDIA Temperature 36.4 C (97.6 F) 09/20/2017 11:41 PM SALES ASSISTANT ENTERTAINMENT AND MEDIA Respiratory Rate - - Oxygen Saturation 96% 09/20/2017 11:41 PM SALES ASSISTANT ENTERTAINMENT AND MEDIA Inhaled Oxygen Concentration - - Weight 90.7 kg (200 lb) 10/03/2024 1:16 PM SALES ASSISTANT ENTERTAINMENT AND MEDIA Height 160 cm (5' 3 ) 10/03/2024 1:16 PM SALES ASSISTANT ENTERTAINMENT AND MEDIA Body Mass Index 35.43 10/03/2024 1:16 PM SALES ASSISTANT ENTERTAINMENT AND MEDIA Plan of Treatment Health Maintenance Due Date Last Done Comments Breast Cancer Screening-Mammogram 1955 Colon Cancer Screening-Colonoscopy 1955 Depression Screening 1953 Fall Risk Assessment 1953 Hepatitis C Screening 1953 Osteoporosis Screening-Bone Density Scan 1953 Hepatitis B Screening 1971 Pneumococcal vaccine 65+ (1 of 2 - PCV) 1972 Zoster Vaccine (1 of 2) 2003 Well Visit 65+ 2018 Influenza Vaccine (#1) 2024 DTaP/Tdap/Td Vaccine (2 - Td or Tdap) 05/06/202610/2015 [facility] Care Teams Mill Stenciler Relationship Specialty Start Date End Date Kai Elaine MD [address] [place] [address] PCP - General Internal Medicine 12/11/23
[2024-11-16] MEDS: ONDANSETRON INJ 4 MG/2 ML VIAL IV PUSH (15:27)
--- NOTE | 2024-11-16 15:27 | ED.SKABFB ---
HPI - Skin/Abscess/Foreign Bdy General Chief complaint: Recheck/Abnormal Lab/Rx Stated complaint: ostomy problems Time Seen by Provider: 11/16/24 15:09 Source: patient and EMS Mode of arrival: EMS Limitations: no limitations History of Present Illness HPI narrative: This is a 69 year old female hospice patient who presents to the ER for ostomy complications. Patient pulled off her ostomy bag. Presents to have it replaced. Related Data Allergies Allergy/AdvReac Type Severity Reaction Status Date / Time No Known Allergies Allergy Verified 07/22/24 15:36 Review of Systems Review of Systems: All systems reviewed & are unremarkable except as noted in HPI and below PMFSH Past Medical History Medical History (Updated 11/16/24 @ 16:12 by Bessie Garay PA-C) Hypertension Anxiety Spinal stenosis Epilepsy Exam Narrative: GENERAL: Elderly, well-nourished, and in no acute distress. HEAD: Normocephalic, atraumatic. EYES: EOMI. CHEST: Clear to auscultation. No respiratory distress. No wheezes rales or rhonchi HEART: Regular rate and rhythm. No murmur heard. Normal peripheral pulses. ABDOMEN: Soft, nontender, nondistended, normal active bowel sounds. Ostomy present to the right mid abdomen. Drain sutures in place in the right lower abdomen EXTREMITIES: Normal range of motion. No edema. SKIN: Warm, dry, no rash. NEURO: No focal deficits. Alert and oriented x3. PSYCH: Normal mood and affect Course Vital Signs Vital signs: Vital Signs Temperature 97.7 F 11/16/24 14:53 Pulse Rate 83 11/16/24 14:53 Respiratory Rate 19 11/16/24 14:53 Blood Pressure 143/77 H 11/16/24 14:53 Pulse Oximetry 97 11/16/24 14:53 Oxygen Delivery Room Air 11/16/24 14:53 Temperature 97.7 F 11/16/24 14:53 Pulse Rate 83 11/16/24 14:53 Respiratory Rate 19 11/16/24 14:53 Blood Pressure 143/77 H 11/16/24 14:53 Pulse Oximetry 97 11/16/24 14:53 Oxygen Delivery Room Air 11/16/24 14:53 MDM - Skin/Abscess/Foreign Bdy MDM Narrative Medical decision making narrative: Hospice patient presents to the ER as she had pulled off her ostomy bag. The area was cleansed and new bag was placed. There was also reports of concern of her drain that is in her abdomen. This is sutured in place without any notable complications. Discharged back to facility Critical Care Time Critical Care Time Critical Care Time: No Discharge Plan Discharge Clinical Impression: Complication of ostomy Patient Disposition: NH Detention/Asst Living Condition: Stable Instructions: Colostomy Care (ED) Additional Instructions: Return to the ER if you experience fever, abdominal pain with nausea and vomiting, you are unable to keep down liquids or solids, or any other symptoms that are concerning to you Ostomy care as directed Follow up with your hospice team Patient Language: Serbian Prescriptions: No Action cephalexin 500 mg capsule 500 mg PO Q6H Qty: 28 0RF Follow-up/Referrals: Chele,MD Kai [Primary Care Provider] - Stand Alone Forms: Assisted Discharge
--- NOTE | 2024-11-16 15:44 | PC.NURSE ---
Pt colostomy bag changed by this RN
[2024-11-16] MEDS: MORPHINE SULFATE (*CRX) 2 MG/ML INJ IV PUSH (16:21)
[2024-11-16 17:07] VITALS: BP 130/73; PULSE 81; RESP 20; O2SAT 92
--- NOTE | 2024-11-16 17:25 | PC.NURSE ---
Attempted to call report to [place] three times without an answer. Aspen JENKINS made aware of care plan and in agreeement.
== END 2024-11-16 17:26 | disposition hospice, inpatient (51) ==
PROVIDERS: Emergency Provider Physician Assistant; PCP Internal Medicine
DX: Z43.3 Encounter for attention to colostomy (principal); I10 Essential (primary) hypertension; G40.909 Epilepsy, unspecified, not intractable, without status epilepticus
CPT/HCPCS: 96374; 96375; 99284; J2270; J2405

== ENCOUNTER 2024-11-30 06:39 | Emergency (ER) | payer OTHER, SELFPAY ==
[2024-11-30] VITALS (30 sets, daily range): BP systolic 73–129; BP diastolic 49–97; PULSE 62–75; RESP 10–26; TEMP 36.6–37.1; O2SAT 93–100
--- NOTE | ~2024-11-30 | CT_ITS ---
EXAMINATION: CT abdomen pelvis w con DATE: 11/30/2024 12:26 INDICATION: Right lower quadrant abdominal pain. TECHNIQUE: Computed tomography (CT) of the abdomen and pelvis was performed with 100 mL Omnipaque 350 intravenous contrast. Automated exposure control and iterative reconstruction technique were employe d. The dose-length product was 1132.95 mGy-cm. COMPARISON: CT abdomen and pelvis 05/13/2011 FINDINGS: The visualized portions of the lung bases demonstrate mild atelectasis. There is a pneumato nolvia in right lower lobe. No pleural effusion. The heart size is normal. There is lipomatous hypertro phy of the interatrial septum. No pericardial effusion. The liver, gallbladder, spleen, pancreas, adr enal glands, and left kidney are normal. There is a 6 mm cyst in right kidney. There is an anastomosi s in the rectum. Perirectal fat stranding is noted. There is a diverting ileostomy on the right. Subc utaneous fat stranding in right lower quadrant may be an old surgical site. There is thrombus in left ovarian vein. There is subcutaneous gas in anterior abdominal wall. The pelvic veins are small. Ther e are enlarged collateral veins in the body wall. There is thoracolumbar levoscoliosis. There is mode rate thoracic spondylosis and mild lumbar spondylosis. IMPRESSION: 1. Subcutaneous gas in anterior abdominal wall, which may be from trauma or prior surgery. Infection is not excluded. 2. Thrombus in left ovarian vein. Reviewed, dictated and finalized at location A. IMPRESSION: 1. Subcutaneous gas in anterior abdominal wall, which may be from trauma or moo or surgery. Infection is not excluded. 2. Thrombus in left ovarian vein.
--- NOTE | 2024-11-30 06:57 | PC.NURSE ---
Katalina Hubert [facility] @ [phone] report Pt has active DNR will fax to us. 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 PMH Epilepsy, htn, afib, bradycardia, seizure. NKDA Active orders will be faxed with medication list.
--- OUTSIDE RECORDS SUMMARY | 2024-11-30 08:39 | XMS_ITS | Clinical Summary ---
Author Organization [facility] Address [address] [place] [id number] Care Team Providers Care International Exchange Coordinator Name Role Phone Kai Elaine MD Primary [...] Department Care Team Description 10/03/2024 1:20 PM BLOW UP OPERATOR Office [facility]) - [facility] ENT [address] [facility] Building [address] [place] [address] Allyn Dover NP Bilateral impacted [...] on file Legal Sex Female 9:28 AM BLOW UP OPERATOR Gender Identity Not on file Sexual Orientation Not on file Obstetrics History Last Filed Vital Signs Vital Sign Reading Time Taken Comments Blood Pressure 125/85 10/03/2024 1:16 PM BLOW UP OPERATOR Pulse 98 10/03/2024 1:16 PM BLOW UP OPERATOR Temperature 36.4 C (97.6 F) 09/20/2017 11:41 PM BLOW UP OPERATOR Respiratory Rate - - Oxygen Saturation 96% 09/20/2017 11:41 PM BLOW UP OPERATOR Inhaled Oxygen Concentration - - Weight 90.7 kg (200 lb) 10/03/2024 1:16 PM BLOW UP OPERATOR Height 160 cm (5' 3 ) 10/03/2024 1:16 PM BLOW UP OPERATOR Body Mass Index 35.43 10/03/2024 1:16 PM BLOW UP OPERATOR Plan of Treatment Health Maintenance Due Date [...] (2 - Td or Tdap) 05/06/202610/2015 Insurance [facility] Care Teams International Exchange Coordinator Relationship Specialty Start Date End Date Kai Elaine MD [address] [place] [address] PCP - General Internal Medicine 12/11/23
--- OUTSIDE RECORDS SUMMARY | 2024-11-30 08:39 | XMS_ITS | Referral Summary ---
Author Organization [facility] Address [address] [place] [address] Care Team Providers Care Medical Superintendent Name Role Phone Kai Elaine MD Primary Care Provider [phone] Encounters Date Type Department Care Team Description 10/03/2024 1:20 PM DATA CENTER OPERATOR Office Visit [facility]) - [facility] ENT [address] [facility] Medical Office Building [address] [place] [address] Allyn Dover NP Bilateral impacted [...] on file Legal Sex Female 9:28 AM DATA CENTER OPERATOR Gender Identity Not on file Sexual Orientation Not on file Last Filed Vital Signs Vital Sign Reading Time Taken Comments Blood Pressure 125/85 10/03/2024 1:16 PM DATA CENTER OPERATOR Pulse 98 10/03/2024 1:16 PM DATA CENTER OPERATOR Temperature 36.4 C (97.6 F) 09/20/2017 11:41 PM DATA CENTER OPERATOR Respiratory Rate - - Oxygen Saturation 96% 09/20/2017 11:41 PM DATA CENTER OPERATOR Inhaled Oxygen Concentration - - Weight 90.7 kg (200 lb) 10/03/2024 1:16 PM DATA CENTER OPERATOR Height 160 cm (5' 3 ) 10/03/2024 1:16 PM DATA CENTER OPERATOR Body Mass Index 35.43 10/03/2024 1:16 PM DATA CENTER OPERATOR Plan of Treatment Not on file Insurance Care Teams Medical Superintendent Relationship Specialty Start Date End Date Kai Elaine MD [address] [place] [address] PCP - General Internal Medicine 12/11/23
--- OUTSIDE RECORDS SUMMARY | 2024-11-30 08:39 | XMS_ITS | CONTINUITY OF CARE DOCUMENT ---
Author Name anoop davalos Address Unknown Organization [facility] Address [address] [facility] [place] [address] Phone [phone] Care Team Providers Care Highway Traffic Control Technician Name Role Phone Shanon Lozano MD Unavailable Shanon Lozano MD Unavailable [phone] INSURANCE PROVIDERS Payer name Policy type / Coverage type [place] [employer] ID LEVY MEDICAID Medicaid [id number]
--- OUTSIDE RECORDS SUMMARY | 2024-11-30 08:39 | XMS_ITS | Data Portability ---
Author Organization [facility] Address [address] [place] [address] Assessment No assessment recorded. Plan of Treatment Reminders Order Date Submit Date Provider Last Modified By Organization Details Last Modified Time Details Appointments None recorded. Lab rapid strep group A, throat 2015 016 [email or web address] In-Office Order, Internal Use Only DO Not Attach Compendium DO Not Attach Compendium, Do Not Delete/merge, [id number] 6 15:37:22 CMP, serum or plasma 2014 015 [email or web address] [facility], [address] [place] [address], [address], [place], [address], 5 11:52:33 lipid panel, serum 2014 015 [email or web address] [facility], [address] [place] [address], [address], [place], [address], 5 11:52:33 vitamin B12 + folate, serum or blood 2014 015 CHRISTOPHER [facility], [address] [place] [address], [address], [place], [address], 5 05:04:16 thyroid panel, serum 2014 015 CHRISTOPHER [facility], [address] [place] [address], [address], [place], [address], 5 05:04:18 vitamin D, 1,25-dihyd souleymane, serum 2014 015 CHRISTOPHER [facility], [address] [facility], [address], [place], [address], 5 05:04:14 Referral orthopedic referral - Please call patient to schedule 2015 016 [email or web address] [facility] Dept Of Orthopedics, [address], [place], [address], 7 08:19:02 ophthalmol ogist referral 2014 015 [email or web address] [facility], [address] , [place], [address], 5 16:15:42 gastroente rologist referral - Please schedule appointmen t and contact patient. 2014 015 [email or web address] Not available 5 11:04:50 colonoscop y referral 2014 015 [email or web address] Not available 5 14:36:18 neurologis t referral 2014 015 [email or web address] Not available 5 14:36:[address] referral 2014 015 [email or web address] Not available 5 14:36:18 Procedures None recorded. Surgeries None recorded. Imaging x-ray, knee 2015 016 strice Not available 6 12:27:10 EEG 2014 015 [email or web address] Not available 5 14:36:19 MAMMO, screening, digital, unilateral 2014 015 [email or web address] Not available 5 14:36:19 bone density, hip and spine 2014 015 [email or web address] Not available 5 14:36:19 Medication Orders phenytoin sodium extended 100 mg capsule 2015 016 [id number], [address] [place] [place], [id number], 6 12:36:22 tobramycin 0.3 % eye drops 2015 016 [facility], [address] [place] [address], [id number], 6 15:37:29 Zithromax Z-Christopher 250 mg tablet 2015 016 [facility], [address] [place] [address], [id number], 6 15:37:30 Dilantin Extended 100 mg capsule 2014 015 [facility]264, [address] [place] [address], [id number], 5 16:47:52 Dilantin Extended 100 mg capsule 2014 015 [facility]8428, [address] [place] [address], [id number], 5 13:19:08 Patient TargetsNo targets recorded. Patient Instructions Encounter Date Encounter Id Patient Instructions Last Modified By Organization Details Last Modified Time 01/02/2015 [id number] chronic obstructive pulmonary disease (COPD): care instructions [email or web address] Not available 01/02/2015 13:19:08 learning about copd and how to prevent lung infections [email or web address] Not available 01/02/2015 13:19:08 06/24/2015 [id number] chronic obstructive pulmonary disease (COPD): care instructions [email or web address] Not available 06/25/2015 13:12:08 learning about copd and how to prevent lung infections [email or web address] Not available 06/25/2015 13:12:08 F/U VISIT IN 3-4 MONTHS. [email or web address] Not available 06/24/2015 16:47:36 10/02/2015 [id number] pinkeye: care instructions strice Not available 10/02/2015 15:37:42 sore throat: car e instructions strice Not available 10/02/2015 15:37:42 12/24/2015 [id number] knee arthritis: care instructions strice Not available [...] Zach Dick Internal Medicine, Encounter Date: 01/02/2015 Utility Repairer Referral for Ad ult health examination Referring Physician: Zach Dick Internal Medicine, Encounter Date: 01/02/2015 Neurologist Referral for Sei zure Referring Physician: Zach Dick Internal Medicine, Encounter Date: 01/02/2015 Prop Attendant Referral for Disorder of vision Referring Physician: [...] DO Not Attach Compendium, Do Not Delete/merge, [id number] 10/02/2015 15:36:37 04/27/20 15 04/27/2015 imagi ng/di agnos tic resul t No observ ation record ed. [facility] (Imaging) [address] [place], [address], 06/24/2015 16:44:59 04/27/20 15 04/27/2015 imagi ng/di agnos tic resul t No observ ation record ed. [facility] ([facility]) [address] [place], [address], 06/24/2015 16:44:59 11/17/19 16 11/16/2015 imagi ng/di agnos tic resul t No observ ation record ed. [facility] ([facility]) [address] [place], [address], 12/24/2015 12:26:34 05/06/20 16 05/06/2016 CT, head No observ ation record ed. [facility] [address] [place], [address], 05/06/2016 14:29:19 05/06/20 16 05/06/2016 CT, cervi josefina spine , w/o contr ast No observ ation record ed. [facility] (Im[facility]) [address] [place], [address], 05/06/2016 14:28:52 05/06/20 16 05/06/2016 x-ray , chest No observ ation record ed. [facility] (Im[facility]) [address] [place], [address], 05/06/2016 14:28:36 10/18/19 19 10/18/2018 XR, chest No observ ation record ed. [facility] ([facility]) [address] [place], [address], 10/18/2018 14:12:05 10/18/19 19 10/18/2018 CT, head, w/o contr ast No observ ation record ed. [email or web address] Not Available 2018 14:11:46 Result Notes None recorded. Problems Name Problem SNOMED Code Status Onset Date Resolution Date Notes Provider Name and Address Organization Details Recorded Time Seizure 98763040 Active Zach Dick MD Attn: Lisa g,[address] [facility], [place], [address], [place] [facility] 6 12:36:22 Chronic obstructive pulmonary disease 09220480 Active Zach Dick MD Attn: Lisa kruger,[address] [facility], [place], [address], [place] [facility] 6 12:36:22 Disorder of vision 22802213 Active Zach Dick MD Attn: Lisa kruger,[address] [facility], [place], [address], [place] [facility] 5 16:47:52 Acute conjunctivitis 84852074 Active Zach Dick MD Attn: Lisa kruger,[address] [facility], [place], [address], [place] [facility] 6 15:37:20 Acute pharyngitis 679646745 Active Zach Dick MD Attn: Lisa kruger,[address] [facility], [place], [address], [place] [facility] 6 15:37:20 Osteoarthritis of knee 612068818 Active Ana Calloway RN null, [place] [facility] 6 10:52:19 Problem Notes None recorded. Procedures Surgical History None recorded. Imaging Results Imaging Date Name Status LastModified by [facility] Details LastModified Time 04/27/2015 imaging/diagn ostic result completed [facility] ([facility]) [address] [place], [address], 06/24/2015 16:44:59 04/27/2015 imaging/diagn ostic result completed [facility] ([facility]) [address] [place], [address], 06/24/2015 16:44:59 11/16/2015 imaging/diagn ostic result completed [facility] ([facility]) [address] [place], [address], 12/24/2015 12:26:34 05/06/2016 CT, head completed [facility] [address] [place], [address], 05/06/2016 14:29:19 05/06/2016 CT, cervical spine, w/o contrast completed [facility] (Imaging) [address] [place], [address], 05/06/2016 14:28:52 05/06/2016 x-ray, chest completed [facility] (Imaging) [address] [place], [address], 05/06/2016 14:28:36 10/18/2018 XR, chest completed [facility] (Imaging) [address] [place], [address], 10/18/2018 14:12:05 10/18/2018 CT, head, w/o contrast completed [email or web address] Information not available 10/18/2018 14:11:46 Procedure [...] Updated DateTime 5 95 % 95 % 08305.4 22213 g 94 /min 30.4 kg/m2 155.575 cm 98.2 [degF] 118 mm[Hg] 86 mm[Hg] Emmanuel Gabriel MA [facility] 5 12:38:26 Date Recorded Body weight Oxygen saturation Oxygen saturation in Arterial blood by Pulse oximetry Body height Body temperature Heart rate Body mass index (BMI) Systolic blood pressure Diastolic blood pressure Provider Name and Address Organization Details Last Updated DateTime 5 11321.0 79185 g 97 % 97 % 155.575 cm 98.3 [degF] 77 /min 29.9 kg/m2 120 mm[Hg] 80 mm[Hg] Emmanuel Gabriel [facility] 5 16:27:46 Date Recorded Body temperature Body mass index (BMI) Body height Oxygen saturation Oxygen saturation in Arterial blood by Pulse oximetry Heart rate Body weight Systolic blood pressure Diastolic blood pressure Provider Name and Address Organization Details Last Updated DateTime 6 99.4 [degF] 29.3 kg/m2 155.575 cm 97 % 97 % 103 /min 02428.8 75449 g 120 mm[Hg] 80 mm[Hg] Emmanuel Gabriel [facility] 6 15:17:22 Date Recorded Body weight Oxygen saturation Oxygen saturation in Arterial blood by Pulse oximetry Heart rate Body mass index (BMI) Body height Body temperature Systolic blood pressure Diastolic blood pressure Provider Name and Address Organization Details Last Updated DateTime 6 63417.8 70049 g 96 % 96 % 75 /min 29.3 kg/m2 155.575 cm 98.3 [degF] 108 mm[Hg] 82 mm[Hg] Emmanuel Gabriel [facility] 6 12:17:39 Social History Question Answer Notes LastModified by Organizat ion Details LastModified Time Tobacco Smoking Status Former Smoker cigarettes LIAT Fabian, [facility] 01/02/2015 12:38:26 How Many Years Have You [...] SNOMED-CT Code Diagnosis ICD10 Code Diagnosis Note [id number] [facility] (Adult Med) [address] [place] [address] 01/02/2015 12:22:59 01/02/2015 14:36:18 Seizure 64430775 Chronic ob structive pulmonary disease 25554144 Ex-smoker 8237274 Screening for malignant neoplasm of colon 434355937 Adult [facility] th examination 525405074 [id number] Stacy Banglroy [facility] (Adult Med) [address] [place] [address] 04/27/2015 11:55:16 04/27/2015 16:33:40 [id number] Zach Dick MD [facility] (Adult Med) [address] [place] [address] 06/24/2015 16:20:42 06/24/2015 17:15:59 Chronic obstructive pulmonary disease 88251925 J44.9 Seizure 21088198 R56.9 Disorder of vision 03403 002 H53.9 [id number] Caty Franklin is [facility] (Adult Med) [address] [place] [address] 10/02/2015 15:01:16 10/02/2015 15:43:10 Acute conjunctivitis 32573697 H10.33 Acute pharyngitis 433429 003 J02.9 [id number] [facility] [address] [place] [address] 12/24/2015 12:01:44 12/24/2015 12:35:19 Seizure 32600200 R56.9 Chronic ob structive pulmonary disease 49895799 J44.9 Ex-smoker 8890337 Z87.89 1 Osteoarthr itis of knee 302062016 M17.9 Health Concerns Section Related Observation LastModified by Organization Detai ls LastModified Time None Recorded Concern Status LastModified by Organization Details LastModified Time None Recorded Advance Directives Directive None Recorded Payers Encounter Date Sequence Insurance Name Policy Number Policy Chiang Covered Member ID Chiang Member ID Guarantor Name 01/02/2015 1 [facility] (MEDICAID HMO) Tejal Short [id number] Tejal Short 04/27/2015 1 [facility] (MEDICAID HMO) Tejal Short [id number] Tejal Short 06/24/2015 1 [facility] (MEDICAID HMO) Tejal Short [id number] Tejal Short 10/02/2015 1 [facility] (MEDICAID HMO) Tejal Short [id number] Tejal Short 12/24/2015 1 [facility] (MEDICAID HMO) Tejal Short [id number] Tejal Short Notes Date Note Type Note Provider Name and Address Organization Details Recorded Time 06/24/2015 text/html REFILLS OF MEDICATIONS., NO NECK PAIN, NO DIFFICULTY OF BREATHING. SHE GOT THE COLONOSCOPY EX, SHE WILL RE-SCHEDULE., SHE DOSE NOT WANT MAMMOGRAM. SHE HAS HAD READING PROBLEM, WILL REFERE TO EYE DOCTOR. Zach Dick MD Attn: [address] [place], [address], [facility] 06/24/2015 16:48:11 10/02/2015 text/html Shedd eyes and so re throat. Zach Dick MD Attn: Accounting[address] [place], [address], [facility] 10/02/2015 15:37:23 OBGyn Episode No OBEpisode recorded.
[2024-11-30 09:49] LABS: Basophils Percent Auto 0.5 % (0.2-1.2); Eosinophils Absolute Auto 0.6 K/mm3 (0-0.3); Eosinophils Percent Auto 7.1 % (0-4.4); Hematocrit 35.7 % (37.0-47.0); Hemoglobin 10.7 g/dL (12.0-15.0); Immature Granulocyte Absolute 0.06 K/mm3 (0.00-0.031); Immature Granulocyte Percent A 0.7 % (0-0.5); Lymphocytes Absolute Auto 0.75 K/mm3 (0.9-3.2); Lymphocytes Percent Auto 9.2 % (18.3-44.2); Mean Corpuscular Hemoglobin 25.3 pg (26-34); Mean Corpuscular Volume 84.4 fl (80-100); Mean Platelet Volume 8.7 fl (7.4-10.4); Monocytes Absolute Auto 0.9 K/mm3 (0.1-0.6); Monocytes Percent Auto 10.4 % (2.6-8.5); Neutrophils Absolute Auto 5.9 K/mm3 (1.3-6.7); Neutrophils Percent Auto 72.1 % (45.5-73.1); Platelet Count Result 266 k/mm3 (150-375); Red Blood Count 4.23 M/mm3 (4.2-5.4); Red Cell Distribution Width 17.7 % (11.5-14.5); White Blood Count 8.2 K/mm3 (4.5-10.0)
[2024-11-30] MEDS: SODIUM CHLORIDE 0.9% IV 1,000 ML 999 ML IV CONT (09:55)
[2024-11-30 09:59] LABS: Alanine Aminotransferase 39 U/L (6-35); Albumin Level 3.5 g/dL (3.5-5.1); Alkaline Phosphatase 263 U/L (38-126); Anion Gap 11 mmol/L (4-12); Aspartate Amino Transferase 37 U/L (14-36); Bilirubin,Total 0.5 mg/dL (0.2-1.3); Blood Urea Nitrogen 23 mg/dL (7-17); Calcium 8.9 mg/dL (8.4-10.2); Carbon Dioxide 24 mmol/L (22-30); Chloride 101 mmol/L (98-107); Estimated CRCL calculation 80 ml/min; Estimated Glomerular Filt Rate 59; Glucose 120 mg/dL (65-110); Potassium 4.6 mmol/L (3.4-5.0); Sodium 136 mmol/L (137-145)
--- NOTE | 2024-11-30 12:53 | ED.GENADULT ---
HPI - General Adult General Chief complaint: Unspecified Stated complaint: pulled g-tube out Time Seen by Provider: 11/30/24 08:14 History of Present Illness HPI narrative: Patient is a 69-year-old female who presents ER for evaluation after accidentally removing her FIDELIA drain from her right lower quadrant of the abdomen. Patient with history of ileostomy. Normal output. She has some dementia and is also on hospice. Unable to contact family. Related Data Allergies Allergy/AdvReac Type Severity Reaction Status Date / Time No Known Allergies Allergy Verified 11/30/24 08:45 Review of Systems Review of Systems: ROS unobtainable: Yes unobtainable due to mental status PMFSH Past Medical History Medical History (Updated 11/30/24 @ 14:08 by Laci Lomeli MD) Breast cancer Hypertension Anxiety Spinal stenosis Epilepsy Surgical History Surgical History (Updated 11/30/24 @ 14:08 by Laci Lomeli MD) H/O ileostomy Exam Narrative: GENERAL: Chronically ill-appearing, well-nourished, and in no acute distress. HEAD: Normocephalic, atraumatic. ENT: Mucous membranes moist. NECK: Supple. CHEST: Clear to auscultation. No respiratory distress. HEART: Regular rate and rhythm. Normal peripheral pulses. ABDOMEN: Soft, mild tenderness right lower quadrant, ileostomy in expected position with normal stool output. FIDELIA drain site without drainage. No cellulitis the abdomen. EXTREMITIES: Normal range of motion. No edema. SKIN: Warm, dry, no rash. NEURO: Alert and oriented x2. PSYCH: Normal mood and affect. Course Course Emergency Course: Spoke with Dr. Pardo with [facility] No fluid collection on CT. Lactic acid and white blood cell counts normal. Free air in the subcutaneous tissues felt to be related due to traumatic removal of the FIDELIA drain. The skin is soft and non erythematous and there is no drainage from the FIDELIA drain site. Appropriate for discharge back to her facility. Vital Signs Vital signs: Vital Signs Temperature 98.4 F 11/30/24 06:43 Pulse Rate 74 11/30/24 06:43 Respiratory Rate 18 11/30/24 06:43 Blood Pressure 94/72 L 11/30/24 06:43 Pulse Oximetry 99 11/30/24 06:43 Oxygen Delivery Room Air 11/30/24 06:43 Temperature 98.8 F 11/30/24 13:00 Pulse Rate 73 11/30/24 13:00 Respiratory Rate 18 11/30/24 13:00 Blood Pressure 98/56 L 11/30/24 13:00 Pulse Oximetry 93 11/30/24 13:00 Oxygen Delivery Room Air 11/30/24 06:43 Medical Decision Making Vital Signs Vital Signs: Vital Signs Temperature 98.4 F 11/30/24 06:43 Pulse Rate 74 11/30/24 06:43 Respiratory Rate 18 11/30/24 06:43 Blood Pressure 94/72 L 11/30/24 06:43 Pulse Oximetry 99 11/30/24 06:43 Oxygen Delivery Room Air 11/30/24 06:43 Temperature 98.8 F 11/30/24 13:00 Pulse Rate 73 11/30/24 13:00 Respiratory Rate 18 11/30/24 13:00 Blood Pressure 98/56 L 11/30/24 13:00 Pulse Oximetry 93 11/30/24 13:00 Oxygen Delivery Room Air 11/30/24 06:43 Lab Data 11/30/24 09:43 11/30/24 09:43 Labs: Lab Results 11/30/24 11/30/24 Range/Units 09:43 09:44 WBC 8.2 (4.5-10.0) K/mm3 RBC 4.23 (4.2-5.4) M/mm3 Hgb 10.7 L (12.0-15.0) g/dL Hct 35.7 L (37.0-47.0) % MCV 84.4 (80-100) fl MCH 25.3 L (26-34) pg MCHC 30.0 L (32-36) g/dl RDW 17.7 H (11.5-14.5) % Plt Count 266 (150-375) k/mm3 MPV 8.7 (7.4-10.4) fl Immature Gran % (Auto) 0.7 H (0-0.5) % Neut % (Auto) 72.1 (45.5-73.1) % Lymph % (Auto) 9.2 L (18.3-44.2) % Meigs % (Auto) 10.4 H (2.6-8.5) % Eos % (Auto) 7.1 H (0-4.4) % Baso % (Auto) 0.5 (0.2-1.2) % Lymph # (Auto) 0.75 L (0.9-3.2) K/mm3 Meigs # (Auto) 0.9 H (0.1-0.6) K/mm3 Eos # (Auto) 0.6 H (0-0.3) K/mm3 Baso # (Auto) 0.0 (0.0-0.1) K/mm3 Abs Immat Gran (auto) 0.06 H (0.00-0.031) K/mm3 Absolute Neuts (auto) 5.9 (1.3-6.7) K/mm3 Absolute Nucleated RBC 0.000 (0.0-0.012) K/mm3 Nucleated RBC % 0.0 (0.0-0.2) % Sodium 136 L (137-145) mmol/L Potassium 4.6 (3.4-5.0) mmol/L Chloride 101 (98-107) mmol/L Carbon Dioxide 24 (22-30) mmol/L Anion Gap 11 (4-12) mmol/L BUN 23 H (7-17) mg/dL Creatinine 0.94 (0.7-1.0) mg/dL Estim Creat Clear Calc 80 ml/min Estimated GFR 59 (59 - ) Glucose 120 H (65-110) mg/dL Lactic Acid 1.0 (0.7-2.0) mmol/L Calcium 8.9 (8.4-10.2) mg/dL Total Bilirubin 0.5 (0.2-1.3) mg/dL AST 37 H (14-36) U/L ALT 39 H (6-35) U/L Alkaline Phosphatase 263 H (38-126) U/L Total Protein 8.0 (6.3-8.2) g/dL Albumin 3.5 (3.5-5.1) g/dL Imaging Data Radiologist's impression: ITS Impressions Abdomen/Pelvis CT 11/30/24 12:38 IMPRESSION: 1. Subcutaneous gas in anterior abdominal wall, which may be from trauma or prior surgery. Infection is not excluded. 2. Thrombus in left ovarian vein. Discharge Plan Discharge Clinical Impression: Subcutaneous air Patient Disposition: Home, Self-Care Condition: Stable Additional Instructions: There is traumatic removal of the drain that was previously in the body. There is no fluid collection on CT and only some air in the subcutaneous fluid. Lab work was normal. Follow-up with your hospice palliative care nurse practitioner. Patient Language: Qatari Prescriptions: No Action cephalexin 500 mg capsule 500 mg PO Q6H Qty: 28 0RF Follow-up/Referrals: Chele,MD Kai [Primary Care Provider] - 1 Week
--- NOTE | 2024-11-30 14:48 | PC.NURSE ---
[facility]S arrives for patient
== END 2024-11-30 15:05 | disposition hospice, home (50) ==
PROVIDERS: Emergency Provider Emergency Medicine; PCP Internal Medicine
DX: Z48.03 Encounter for change or removal of drains (principal); I10 Essential (primary) hypertension; G40.909 Epilepsy, unspecified, not intractable, without status epilepticus; Z93.2 Ileostomy status; I82.890 Acute embolism and thrombosis of other specified veins
CPT/HCPCS: 36415; 74177; 80053; 83605; 85025; 96360; 99284; J7030; Q9967